=== PATIENT | female | born 1935 | race Two or more races ===

== ENCOUNTER → 2019-08-02 | Outpatient (CLI) | payer OTHER | END | disposition home or self-care (01) | LOC: RAD 16:37 | DX: S22.42XA Multiple fractures of ribs, left side, initial encounter for closed fracture (principal) ==

== ENCOUNTER 2024-01-23 15:04 | Emergency (ER) | payer OTHER ==
[~2024-01-23] VITALS: Ht 149.9 cm; Wt 45.4 kg
[2024-01-23] MEDS ORDERED: TETANUS DIPHTHERIA TOX. ADSOR 5 ML VIAL IM ONE (17:08)
[2024-01-23] MEDS ORDERED: TETANUS & DIPHTHERIA TOX,ADULT 0.5 ML VIAL IM ONE (17:15)
== END 2024-01-23 17:13 | disposition home or self-care (01) ==
LOC: ER 15:05
DX: T23.202A Burn of second degree of left hand, unspecified site, initial encounter (principal); X10.0XXA Contact with hot drinks, initial encounter; Y93.89 Activity, other specified; Y92.018 Other place in single-family (private) house as the place of occurrence of the external cause; Z88.0 Allergy status to penicillin; Z88.8 Allergy status to other drugs, medicaments and biological substances